=== PATIENT | male | born 1955 | race Caucasian/White ===

== ENCOUNTER 2016-07-09 23:10 | Inpatient (IN) | payer OTHER ==
[~2016-07-09 23:10] MED LIST: NAPROSYN500 MG PO; TYLENOL EXTRA500 MG PO; VIBRAMYCIN100 MG PO; XARELTO15 MG PO; XARELTO20 MG PO; ZYRTEC10 MG PO
== END 2016-07-15 15:50 | disposition home or self-care (01) | DRG 603 ==
LOC: ER 23:10 → MED 07-10 11:00
PROVIDERS: ADMIT Internal Medicine
DX: L03.115 Cellulitis of right lower limb (principal); Z86.718 Personal history of other venous thrombosis and embolism; I87.091 Postthrombotic syndrome with other complications of right lower extremity; R60.0 Localized edema; I87.8 Other specified disorders of veins; J30.2 Other seasonal allergic rhinitis; Z79.899 Other long term (current) drug therapy; Z88.1 Allergy status to other antibiotic agents; Z88.0 Allergy status to penicillin; Z88.2 Allergy status to sulfonamides; Z81.1 Family history of alcohol abuse and dependence; Z84.89 Family history of other specified conditions
CPT/HCPCS: 36415; J1650; J3370

== ENCOUNTER 2016-07-09 23:10 | Emergency (ER) | payer OTHER, SELFPAY | END 2016-07-10 11:00 | disposition critical access hospital (66) | LOC: ER 23:10 | DX: L03.115 Cellulitis of right lower limb (principal); R59.0 Localized enlarged lymph nodes; Z90.89 Acquired absence of other organs; Z87.891 Personal history of nicotine dependence; Z79.899 Other long term (current) drug therapy; Z88.2 Allergy status to sulfonamides; Z88.0 Allergy status to penicillin; Z88.8 Allergy status to other drugs, medicaments and biological substances | CPT/HCPCS: 36415; 96365; 96367; 96375; J3370 ==